=== PATIENT | female | born 1935 | race Asian ===

== ENCOUNTER 2016-08-21 11:47 | Emergency (ER) | payer MEDICARE, OTHER ==
[~2016-08-21] VITALS: Ht 152.4 cm; Wt 59.1 kg
[2016-08-21 13:20] VITALS: BP 141/82
== END 2016-08-21 14:03 | disposition home or self-care (01) ==
LOC: EMS 11:48 → EDBD 11:48 → EMS 14:03
DX: S60.221A Contusion of right hand, initial encounter (principal); W57.XXXA Bitten or stung by nonvenomous insect and other nonvenomous arthropods, initial encounter; Y93.89 Activity, other specified; Y92.9 Unspecified place or not applicable; Y99.9 Unspecified external cause status
CPT/HCPCS: 99283